=== PATIENT | female | born 1955 | race Caucasian/White ===

== ENCOUNTER 2018-08-14 11:01 | Emergency (ER) | payer BC ==
[~2018-08-14] VITALS: Ht 177.8 cm; Wt 99.5 kg
[2018-08-14] MEDS ORDERED: CLARITIN 1010 MG/TAB PO (11:22)
[2018-08-14] MEDS ORDERED: MUCINEX D1 TER PO (11:23)
[2018-08-14 12:16] LABS: BASO % 0.6 % (0.0-2.0); EOS # 0.1 (0.0-0.7); EOS % 1.5 % (0-4.0); GRAN # 3.7 (1.4-6.5); HEMATOCRIT 44.7 % (37.0-47.0); HEMOGLOBIN 14.7 g/dl (12.5-16.0); LYMPH # 0.6 (1.2-3.4); LYMPH % 13.4 % (20.0-51.0); MEAN CELL VOLUME 91 fl (80.0-100.0); MEAN CORPUSCULAR HEMOGLOBIN 30 pg (27.0-31.0); MEAN CORPUSCULAR HGB CONC 33 g/dl (33.0-37.0); MEAN PLATELET VOLUME 11.1 fl (7.4-10.4); MONO # 0.3 (0.1-0.6); MONO % 6.1 % (1.7-9.3); PLATELET COUNT 148 K/mm3 (130-400); RED BLOOD COUNT 4.93 M/mm3 (4.10-5.30); REDCELL DISTRIBUTION WIDTH-CV 12.6 % (11.5-14.5)
[2018-08-14 12:21] LABS: CREATININE, serum 0.69 (0.52-1.25); POTASSIUM 3.6 mmol/L (3.4-5.0)
[2018-08-14] MEDS ORDERED: ZITHROMAX 250M250 MG PO (12:40)
[2018-08-14] MEDS ORDERED: HCTZ 25MG TAB25 MG PO (12:59)
[2018-08-14 13:05] VITALS: BP 144/63; PULSE 83; TEMP 98.8
== END 2018-08-14 13:05 | disposition home or self-care (01) ==
LOC: COL.ER 11:01
PROVIDERS: Emergency Medicine
DX: R60.9 Edema, unspecified (principal); J20.9 Acute bronchitis, unspecified

== ENCOUNTER → 2018-09-01 | Outpatient (CLI) | payer BC ==
[~2018-09-01] MED LIST: CLARITIN 1010 MG/TAB PO; HCTZ 25MG TAB25 MG PO; MUCINEX D1 TER PO; ZITHROMAX 250M250 MG PO
== END ==
LOC: MC.RAD 08:02
DX: Z12.31 Encounter for screening mammogram for malignant neoplasm of breast (principal)

== ENCOUNTER → 2018-09-06 | Outpatient (CLI) | payer BC | LOC: COL.VAS 10:37 | DX: I36.1 Nonrheumatic tricuspid (valve) insufficiency (principal) ==

== ENCOUNTER → 2019-09-12 | Outpatient (CLI) | payer BC | LOC: MC.RAD 11:48 | DX: Z12.31 Encounter for screening mammogram for malignant neoplasm of breast (principal) ==

== ENCOUNTER → 2020-11-26 | Outpatient (CLI) | payer BC | LOC: MC.RAD 12:56 | DX: Z12.31 Encounter for screening mammogram for malignant neoplasm of breast (principal) ==

== ENCOUNTER → 2021-12-07 | Outpatient (CLI) | payer BC | LOC: MC.RAD 14:41 | DX: Z12.31 Encounter for screening mammogram for malignant neoplasm of breast (principal) ==